=== PATIENT | female | born 1960 | race Caucasian/White ===

== ENCOUNTER → 2019-01-20 | Outpatient (CLI) | payer OTHER ==
--- NOTE | 2019-01-20 10:53 | RAD ---
EXAM: Dual energy x-ray absorptiometry (DEXA). HISTORY: Postmenopausal female presents for osteoporosis screening. COMPARISON: 02/17/2008. TECHNIQUE: Dual energy x-ray absorptiometry of the lumbar spine and right hip was performed. Calculation of bone mineral density based on standard deviations above or below the expected young adult normal value (T-score) was completed. FINDINGS: The average bone mineral density in the 1st through 4th lumbar vertebrae is 0.943 g/cmxcm, corresponding with a T-score of -2.0. There has been a there has been a 7.5% decrease in density of the lumbar spine compared to a study dated 02/17/2008. The average total bone mineral density in the right hip is 0.681 g/cmxcm, corresponding with a T-score of -2.2. There has been a 3.2% decrease in density of the right hip compared to a study dated 02/17/2008. The bone mineral density localized to the femoral neck corresponds to T-score of -2.9. IMPRESSION: 1. Osteoporosis measured at the right femoral neck. There is osteopenia measured for the total right hip. 2. Osteopenia measured at the lumbar spine. Note: Definitions established by the [employer] Organization: 1. Normal: T-score is -1.0 or above. 2. Osteopenia: T-score is between -1.0 and -2.5 . 3. Osteoporosis: T-score is -2.5 or below. Electronically signed by: Naomie Blackwell MD (01/20/2019 10:50 AM) [id number]
== END | disposition home or self-care (01) ==
LOC: DXRAD 09:54
DX: M81.8 Other osteoporosis without current pathological fracture (principal); M85.88 Other specified disorders of bone density and structure, other site; Z78.0 Asymptomatic menopausal state; Z87.891 Personal history of nicotine dependence
CPT/HCPCS: 77080

== ENCOUNTER → 2020-07-14 | Outpatient (CLI) | payer OTHER ==
--- NOTE | 2020-07-14 16:26 | RAD ---
EXAM: XR KNEE_AP BILAT STANDING, XR KNEE_LT 1-2 VIEWS. HISTORY: Bilateral knee pain. COMPARISON: None. FINDINGS: Osteopenia is at least mild. Joint spaces and alignment are maintained bilaterally. No frac tures are identified. There is no joint effusion on the left. IMPRESSION: 1. Mild osteopenia. No fracture or clear degenerative change. Electronically signed by: Hansel Gaytan MD (07/14/2020 4:24 PM) [id number]
== END ==
LOC: RAD 13:59
PROVIDERS: ATTEND Orthopaedic Surgery
DX: M85.88 Other specified disorders of bone density and structure, other site (principal)
CPT/HCPCS: 73560; 73565